=== PATIENT | female | born 1965 | race Caucasian/White ===

== ENCOUNTER 2017-01-25 10:45 | Outpatient (RCR) | payer MEDICAID ==
[~2017-01-25 10:45] MED LIST: ATIVAN 0.50.5 MG/TAB PO; CEPHALEXIN500 M1 PO; FERROUS SU325 MG/TAB PO; LASIX20 MG PO; LORTAB 5/500 501 TAB PO; NO HOME MEDICATIONS; NORCO 325 MG-7.1 TAB PO; PERCOCET 325 MG1 TA2 PO; POTASSIUM CH2 MEQ/ML PO; ROXICODONE 55 MG/TAB PO; ULTRAM 50MG TAB50 MG PO; ZOFRAN ODT4 MG PO; ZOLOFT 25MG25 MG PO; ZOLOFT 50MG50 MG PO; ZYRTEC 10MG10 MG PO
== END 2017-02-01 | disposition home or self-care (01) ==
LOC: MKS.ESL.PT
DX: M62.81 Muscle weakness (generalized) (principal); S81.801D Unspecified open wound, right lower leg, subsequent encounter; X58.XXXD Exposure to other specified factors, subsequent encounter

== ENCOUNTER 2017-01-31 14:05 | Outpatient (RCR) | payer BC, MEDICAID | END 2017-01-31 14:07 | LOC: MKS.ESL.PT 14:05 | DX: Z53.9 Procedure and treatment not carried out, unspecified reason (principal) ==

== ENCOUNTER 2017-04-13 14:30 | Outpatient (RCR) | payer MEDICAID | END 2017-05-03 | disposition still patient (30) | LOC: MKS.ESL.PT | DX: M62.81 Muscle weakness (generalized) (principal) ==

== ENCOUNTER → 2017-05-26 | Outpatient (CLI) | payer MEDICAID | LOC: ZCOL.LAB 21:30 | DX: Z79.2 Long term (current) use of antibiotics (principal) ==

== ENCOUNTER 2017-08-10 11:15 | Outpatient (RCR) | payer MEDICAID ==
[2017-08-10] MEDS ORDERED: ASPIRIN E.C. 8181 MG PO (12:35)
[2017-08-10] MEDS ORDERED: SMZ/TMPDS PO (12:35)
[2017-08-10] MEDS ORDERED: VITAMIND3 5000 PO (12:36)
[2017-08-10] MEDS ORDERED: ATIVAN 0.50.5 MG/TAB PO (12:37)
== END 2017-09-15 | disposition still patient (30) ==
LOC: MKS.ESL.PT
DX: Z47.89 Encounter for other orthopedic aftercare (principal); M25.561 Pain in right knee; R53.1 Weakness; R26.89 Other abnormalities of gait and mobility; Z95.9 Presence of cardiac and vascular implant and graft, unspecified; Z90.89 Acquired absence of other organs; Z87.81 Personal history of (healed) traumatic fracture; Z98.890 Other specified postprocedural states

== ENCOUNTER 2017-08-10 11:36 | Emergency (ER) | payer MEDICAID ==
[~2017-08-10] VITALS: Ht 162.6 cm; Wt 72.7 kg
[2017-08-10 11:39] VITALS: BP 142/69; TEMP 98.1
[2017-08-10] MEDS ORDERED: SMZ/TMPDS PO (12:35)
[2017-08-10] MEDS ORDERED: ASPIRIN E.C. 8181 MG PO (12:35)
[2017-08-10] MEDS ORDERED: VITAMIND3 5000 PO (12:36)
[2017-08-10] MEDS ORDERED: ATIVAN 0.50.5 MG/TAB PO (12:37)
[2017-08-10 13:09] VITALS: PULSE 87
== END 2017-08-10 13:09 | disposition home or self-care (01) ==
LOC: COL.ER 11:36
DX: S99.921A Unspecified injury of right foot, initial encounter (principal); S92.311A Displaced fracture of first metatarsal bone, right foot, initial encounter for closed fracture; F17.210 Nicotine dependence, cigarettes, uncomplicated; Z79.82 Long term (current) use of aspirin; W18.39XA Other fall on same level, initial encounter; X50.0XXA Overexertion from strenuous movement or load, initial encounter

== ENCOUNTER 2017-11-23 13:15 | Outpatient (RCR) | payer MEDICAID ==
[~2017-11-23 13:15] MED LIST changes: +ASPIRIN E.C. 8181 MG PO; +SMZ/TMPDS PO; +VITAMIND3 5000 PO
== END 2017-11-30 13:38 | disposition still patient (30) ==
LOC: MKS.ESL.PT 13:15
DX: M62.81 Muscle weakness (generalized) (principal); R26.89 Other abnormalities of gait and mobility

== ENCOUNTER 2018-02-22 12:30 | Outpatient (RCR) | payer MEDICAID | END 2018-02-28 | LOC: MKS.ESL.PT | DX: R53.1 Weakness (principal); R26.9 Unspecified abnormalities of gait and mobility; V89.2XXD Person injured in unspecified motor-vehicle accident, traffic, subsequent encounter ==

== ENCOUNTER 2018-03-22 14:45 | Outpatient (RCR) | payer MEDICAID ==
[2018-04-27] MEDS ORDERED: CIPRO 500MG TA500 MG PO (10:01)
[2018-04-27] MEDS ORDERED: MASON NATURAL2000 IU PO (10:02)
[2018-04-27] MEDS ORDERED: LEXAPRO 10MG10 MG PO (10:02)
[2018-04-27] MEDS ORDERED: ATARAX50 MG PO (10:03)
[2018-04-27] MEDS ORDERED: MINIPRESS2 MG PO (10:04)
[2018-04-27] MEDS ORDERED: NORCO 325 MG-7.1 TAB PO (14:08)
[2018-04-27] MEDS ORDERED: CEPHALEXIN500 M1 PO (14:09)
[2018-04-27] MEDS ORDERED: PHENERGAN 25 TA25 MG PO (14:09)
== END 2018-05-30 | disposition home or self-care (01) ==
LOC: MKS.ESL.PT
DX: R29.898 Other symptoms and signs involving the musculoskeletal system (principal); R26.9 Unspecified abnormalities of gait and mobility; T79.9XXA Unspecified early complication of trauma, initial encounter

== ENCOUNTER 2018-04-27 08:35 | Day surgery (SDC) | payer MEDICAID ==
[~2018-04-27] VITALS: Ht 162.6 cm; Wt 89.1 kg
[2018-04-27] MEDS ORDERED: CIPRO 500MG TA500 MG PO (10:01)
[2018-04-27] MEDS ORDERED: MASON NATURAL2000 IU PO (10:02)
[2018-04-27] MEDS ORDERED: LEXAPRO 10MG10 MG PO (10:02)
[2018-04-27] MEDS ORDERED: ATARAX50 MG PO (10:03)
[2018-04-27] MEDS ORDERED: MINIPRESS2 MG PO (10:04)
[2018-04-27 10:05] VITALS: BP 125/70; PULSE 94; TEMP 98
[2018-04-27 13:45] VITALS: BP 141/86; PULSE 72; TEMP 98.1
[2018-04-27 14:00] VITALS: BP 135/73; PULSE 78
[2018-04-27] MEDS ORDERED: NORCO 325 MG-7.1 TAB PO (14:08)
[2018-04-27] MEDS ORDERED: CEPHALEXIN500 M1 PO (14:09)
[2018-04-27] MEDS ORDERED: PHENERGAN 25 TA25 MG PO (14:09)
[2018-04-27 14:15] VITALS: BP 132/73; PULSE 72
[2018-04-27 14:30] VITALS: BP 132/64; PULSE 82
[2018-04-27 15:00] VITALS: BP 121/70; PULSE 86
== END 2018-04-27 16:19 | disposition home or self-care (01) ==
LOC: SDCO 08:35
DX: M19.071 Primary osteoarthritis, right ankle and foot (principal); S92.321K Displaced fracture of second metatarsal bone, right foot, subsequent encounter for fracture with nonunion; M20.41 Other hammer toe(s) (acquired), right foot; F32.9 Major depressive disorder, single episode, unspecified; M20.21 Hallux rigidus, right foot; M77.41 Metatarsalgia, right foot; F43.10 Post-traumatic stress disorder, unspecified; F41.9 Anxiety disorder, unspecified; J30.9 Allergic rhinitis, unspecified; R05 Cough; G47.00 Insomnia, unspecified; G89.29 Other chronic pain; D64.9 Anemia, unspecified; Z87.891 Personal history of nicotine dependence; Z83.3 Family history of diabetes mellitus; Z82.49 Family history of ischemic heart disease and other diseases of the circulatory system; Z84.1 Family history of disorders of kidney and ureter; Z82.69 Family history of other diseases of the musculoskeletal system and connective tissue
CPT/HCPCS: C1713; J1100; J1170; J2250; J2704; J2795; J3010; J7120

== ENCOUNTER 2018-08-21 15:45 | Outpatient (RCR) | payer MEDICAID ==
[~2018-08-21 15:45] MED LIST changes: +ATARAX50 MG PO; +CIPRO 500MG TA500 MG PO; +LEXAPRO 10MG10 MG PO; +MASON NATURAL2000 IU PO; +MINIPRESS2 MG PO; +PHENERGAN 25 TA25 MG PO
== END 2018-09-10 | disposition home or self-care (01) ==
LOC: MKS.ESL.PT
DX: Z47.81 Encounter for orthopedic aftercare following surgical amputation (principal); Z89.421 Acquired absence of other right toe(s); Z98.1 Arthrodesis status

== ENCOUNTER 2018-09-25 10:31 | Day surgery (SDC) | payer MEDICAID ==
[~2018-09-25] VITALS: Ht 162.6 cm; Wt 95.0 kg
[2018-09-25] MEDS ORDERED: SYNTHROID0.05 MG/TA PO (11:20)
[2018-09-25] MEDS ORDERED: DESYREL 50MG50 MG PO (11:21)
[2018-09-25] MEDS ORDERED: LEXAPRO20 MG PO (11:21)
[2018-09-25] MEDS ORDERED: MASON NATURAL2000 IU PO (11:22)
[2018-09-25] MEDS ORDERED: ATARAX 25MG25 MG/TAB PO (11:22)
[2018-09-25] MEDS ORDERED: ASPIRIN 81M81 MG/TA2 PO (11:22)
[2018-09-25 11:23] VITALS: BP 142/78; PULSE 79; TEMP 98.1
[2018-09-25 16:09] VITALS: TEMP 98
[2018-09-25 17:00] VITALS: BP 152/72; PULSE 102
[2018-09-25 17:15] VITALS: BP 128/62; PULSE 107
[2018-09-25 17:30] VITALS: BP 130/74; PULSE 88
== END 2018-09-25 20:00 ==
LOC: SDCO 10:31 → SURG 19:00 → SDCO 20:00
DX: T84.84XA Pain due to internal orthopedic prosthetic devices, implants and grafts, initial encounter (principal); Z98.1 Arthrodesis status; Z79.899 Other long term (current) drug therapy
CPT/HCPCS: OP; J0171; J0690; J1100; J1885; J2175; J2250; J2405; J2704; J2795; J3010; J7120

== ENCOUNTER 2018-12-13 20:56 | Emergency (ER) | payer MEDICAID ==
[~2018-12-13] VITALS: Ht 162.6 cm; Wt 97.7 kg
[~2018-12-13 20:56] MED LIST changes: +ASPIRIN 81M81 MG/TA2 PO; +ATARAX 25MG25 MG/TAB PO; +DESYREL 50MG50 MG PO; +LEXAPRO20 MG PO; +SYNTHROID0.05 MG/TA PO
[2018-12-13 21:02] VITALS: BP 137/87; TEMP 98.4
[2018-12-13 22:00] VITALS: PULSE 91
== END 2018-12-13 22:00 | disposition home or self-care (01) ==
LOC: COL.ER 20:56
DX: M70.21 Olecranon bursitis, right elbow (principal); E03.9 Hypothyroidism, unspecified; Z87.891 Personal history of nicotine dependence; Z79.82 Long term (current) use of aspirin

== ENCOUNTER 2018-12-28 11:45 | Outpatient (RCR) | payer MEDICAID | END 2019-01-24 | disposition home or self-care (01) | LOC: MKS.ESL.PT | DX: Z47.89 Encounter for other orthopedic aftercare (principal) ==

== ENCOUNTER → 2019-06-28 | Outpatient (CLI) | payer MEDICARE, MEDICAID | LOC: MC.RAD 09:58 | DX: Z12.31 Encounter for screening mammogram for malignant neoplasm of breast (principal) ==

== ENCOUNTER 2019-07-06 13:00 | Outpatient (RCR) | payer MEDICARE, MEDICAID | END 2019-07-09 15:36 | disposition home or self-care (01) | LOC: MKS.ESL.OT 13:00 | DX: M77.12 Lateral epicondylitis, left elbow (principal) ==

== ENCOUNTER → 2020-01-10 | Outpatient (CLI) | payer MEDICARE, MEDICAID | LOC: COL.RAD 08:53 | DX: G44.309 Post-traumatic headache, unspecified, not intractable (principal) ==

== ENCOUNTER 2020-01-20 10:22 | Emergency (ER) | payer MEDICARE, MEDICAID ==
[~2020-01-20] VITALS: Ht 162.6 cm; Wt 95.5 kg
[2020-01-20 10:27] VITALS: BP 142/93; TEMP 98
[2020-01-20 11:24] VITALS: PULSE 88
== END 2020-01-20 11:25 | disposition home or self-care (01) ==
LOC: COL.ER 10:22
DX: S61.217A Laceration without foreign body of left little finger without damage to nail, initial encounter (principal); Z23 Encounter for immunization; Z79.82 Long term (current) use of aspirin; W26.0XXA Contact with knife, initial encounter; Y93.G3 Activity, cooking and baking; Y92.000 Kitchen of unspecified non-institutional (private) residence as the place of occurrence of the external cause

== ENCOUNTER 2020-08-01 11:15 | Outpatient (RCR) | payer MEDICARE, MEDICAID | END 2020-08-11 | disposition home or self-care (01) | LOC: MKS.ESL.PT | DX: M77.41 Metatarsalgia, right foot (principal); M25.671 Stiffness of right ankle, not elsewhere classified ==

== ENCOUNTER → 2021-03-06 | Outpatient (CLI) | payer MEDICARE, MEDICAID | LOC: ZCOL.LAB 11:28 | DX: Z01.812 Encounter for preprocedural laboratory examination (principal); T84.84XA Pain due to internal orthopedic prosthetic devices, implants and grafts, initial encounter; Z20.822 Contact with and (suspected) exposure to COVID-19 ==

== ENCOUNTER 2023-11-11 07:49 | Day surgery (SDC) | payer MEDICARE, MEDICAID ==
[~2023-11-11] VITALS: Ht 162.6 cm; Wt 99.5 kg
[~2023-11-11 07:49] MED LIST changes: +LR 1,000 ML IV SCH; +Ondansetron 4 MG/2 ML VIAL IV PRN
[2023-11-11] MEDS ORDERED: Glycopyrrolate 0.2 MG/ML 1 ML VIAL ONE (08:43)
[2023-11-11] MEDS ORDERED: Lidocaine PF 2% (20 MG/ML) 5 ML VIAL ONE (08:43)
[2023-11-11 08:59] VITALS: BP 133/73; PULSE 78; TEMP 97.8
[2023-11-11] MEDS ORDERED: LIPITOR 40MG TA40 MG PO (09:07)
[2023-11-11] MEDS ORDERED: ZITHROMAX 250M250 MG PO (09:09)
[2023-11-11] MEDS ORDERED: LUNESTA3 MG PO (09:10)
[2023-11-11] MEDS ORDERED: INDERAL 10MG10 MG PO (09:11)
[2023-11-11] MEDS ORDERED: VERELAN120 MG PO (09:12)
[2023-11-11] MEDS ORDERED: SINGULAIR 110 MG/TAB PO (09:13)
[2023-11-11] MEDS ORDERED: PROAIR HFA0.09 MG/AC IH (09:14)
[2023-11-11] MEDS ORDERED: WOMEN'S DAILY F1 TAB PO (09:15)
[2023-11-11 09:24] VITALS: BP 118/70; PULSE 84; TEMP 97.8
[2023-11-11 09:30] VITALS: BP 110/70; PULSE 78
[2023-11-11 09:45] VITALS: BP 126/72; PULSE 74
--- NOTE | 2023-11-11 10:00 | NUR ---
0923- PATIENT RETURNS TO [facility] [place] [facility] VIA CART. PT AWAKE AND ALERT. RESPIRATIONS UNLABORED. AMBULATED TO RECLINER CHAIR WITH 2:1 SBA. PT DENIES NAUSEA OR ABDOMINAL PAIN. HOOKED UP TO MONITOR AND VS OBTAINED. CALL LIGHT AT SIDE AND DAUGHTER PRESENT. 0930- PATIENT TOLERATING PUDDING AND SPRITE WITHOUT NAUSEA OR ABD PAIN. 0943- D/C INSTRUCTIONS REVIEWED WITH PATIENT. PT VERBALIZED UNDERSTANDING AND A COPY OF INSTRUCTIONS PROVIDED IN D/C FOLDER. 0948- PATIENT DRESSES SELF. 0950- DR. TOLLIVER IN ROOM SPEAKING WITH PATIENT. 1000- PATIENT DISCHARGED FROM UNIT VIA W/C TO A PERSONAL VEHICLE. PT LEFT HOSPITAL IN STABLE CONDITION.
== END 2023-11-11 10:00 | disposition home or self-care (01) ==
LOC: SDCO 07:49
DX: Z12.11 Encounter for screening for malignant neoplasm of colon (principal); D12.5 Benign neoplasm of sigmoid colon
CPT/HCPCS: J2704; J7120